=== PATIENT | female | born 1960 | race Caucasian/White ===

== ENCOUNTER → 2016-11-28 | Outpatient (CLI) | payer OTHER ==
[~2016-11-28] MED LIST: CATHETER FLUSH 10 ML SYR IV PRN; IOHEXOL 350 MG/ML 100 ML (OMNIPAQUE 350) VIAL IV ONE; NS 100 ML (IVPB) BAG IV ONE
[2016-11-28 12:21] LABS: CALCIUM 9.7 MG/DL (8.5-10.1); POTASSIUM 4.8 MMOL/L (3.6-5.0)
--- NOTE | 2016-11-28 15:45 | Diagnostic Imaging Report ---
PROCEDURE: CT abdomen and pelvis with contrast. TECHNIQUE: Multiple contiguous axial images were obtained through the abdomen and pelvis after administration of intravenous contrast. INDICATION: Nausea and abdominal pain. CONTRAST: 100 mL of Omnipaque 350 is administered intravenously. FINDINGS: The lung bases appear clear. There is a [id number] hiatal hernia. The liver, the gallbladder, the pancreas, the spleen, and the adrenal glands appear unremarkable. The kidneys have symmetric enhancement and contrast excretion. There is no hydronephrosis. There is no bowel obstruction. There is extensive diverticulosis in the sigmoid colon seen. This is associated with colonic wall thickening and mild inflammatory changes compatible with mild diverticulitis. Small noninflamed outpouching of the base of the cecum is seen. Adjacent surgical clip in the right lower quadrant is seen. Correlate with prior surgical history. If the patient had prior appendectomy, then this could be a remaining short appendiceal stump or a small cecal diverticulum. The urinary bladder appears unremarkable. The uterus and adnexa appear grossly unremarkable. The abdominal aorta is normal in caliber. No para-aortic significantly enlarged lymph node is seen. The osseous structures demonstrate mild degenerative changes in the SI joints. IMPRESSION: Mild sigmoid diverticulitis. No abscess. The findings were discussed with María, the nurse taking care of the patient at Dr. Nuñez's office, by Dr. Velásquez at the time of dictation. Dictated by: Dictated on workstation # [id number]
== END ==
LOC: RAD 11:33
PROVIDERS: ATTEND Family Medicine
DX: K57.32 Diverticulitis of large intestine without perforation or abscess without bleeding (principal)
CPT/HCPCS: 36415; 74177; 80048